=== PATIENT | male | born 1985 | race Caucasian/White ===

== ENCOUNTER 2016-08-14 23:06 | Inpatient (IN) | payer MEDICAID ==
[~2016-08-14] VITALS: Ht 170.2 cm; Wt 96.3 kg
[~2016-08-14 23:06] MED LIST: FLUO-191 PO; OLAN5TAB2 PO
[2016-08-15] MEDS ORDERED: ZOLPIDEM TARTRATE 10 MG TABLET PO PRN (03:30)
[2016-08-15 06:24] VITALS: BP 129/88
[2016-08-15 08:45] VITALS: BP 108/67
[2016-08-15] MEDS: PANTOPRAZOLE SODIUM 40 MG DR TABLET PO SCH (14:38)
[2016-08-15 17:07] VITALS: BP 102/58
[2016-08-15] MEDS: SERTRALINE HCL 50 MG TABLET PO SCH (22:15)
[2016-08-16 06:40] LABS: BASOPHILS % (AUTO) 0.6 % (0.0-2.0); EOSINOPHILS % (AUTO) 2.9 % (1.0-6.0); HEMATOCRIT 43.7 % (41-53); HEMOGLOBIN 14.1 g/dL (13.5-17.5); LYMPHOCYTES # (AUTO) 1.6 K/uL (1.0-4.8); LYMPHOCYTES % (AUTO) 36.3 % (22.0-44.0); MEAN CORPUSCULAR HEMOGLOBIN 29.9 pg (26.0-34.0); MEAN CORPUSCULAR HGB CONC 32.3 G/dL (31.0-37.0); MEAN CORPUSCULAR VOLUME 92 fL (80-100); MONOCYTES # (AUTO) 0.3 K/uL (0.1-1.0); MONOCYTES % (AUTO) 7.1 % (2.0-9.0); NEUTROPHILS # (AUTO) 2.4 K/uL (1.8-7.7); NEUTROPHILS % (AUTO) 53.1 % (40.0-70.0); PLATELET COUNT (AUTO) 159 K/uL (150-450); RED BLOOD CELL COUNT(AUTO) 4.73 MIL/uL (4.50-5.90); RED CELL DISTRIBUTION WIDTH 14.3 % (11.5-14.5); WHITE BLOOD COUNT (AUTO) 4.5 K/uL (4.5-11.0)
[2016-08-16] MEDS: ZIPRASIDONE HCL 40 MG CAPSULE PO SCH ×2 (06:41→11:18)
[2016-08-16 07:46] LABS: ALANINE AMINOTRANSFERASE 24 U/L (12-78); ALBUMIN 3.6 g/dL (3.4-5.0); ANION GAP 10 mmol/L (8-16); ASPARTATE AMINOTRANSFERASE 7 U/L (15-37); BILIRUBIN,TOTAL 0.4 mg/dL (0.1-1.0); CARBON DIOXIDE 28 mmol/L (22-29); CHLORIDE 106 mmol/L (98-107); CHOL/HDL RATIO 3.1 (4.2-7.3); GLOMERULAR FILTR. RATE CALC > 60 mL/min (>60); POTASSIUM 4.4 mmol/L (3.5-5.1); SODIUM SERUM 144 mmol/L (136-145); THYROID STIMULATING HORMONE 0.35 uIU/mL (0.36-3.74); TOTAL PROTEIN, SERUM 6.5 g/dL (6.4-8.2); UREA NITROGEN, BLOOD 14 mg/dL (7-18)
[2016-08-16 07:55] LABS: HEMOGLOBIN A1C 5.2 % (4.5-6.2)
[2016-08-16 08:47] VITALS: BP 128/60
[2016-08-16] MEDS: LORazepam 2 MG TABLET PO PRN (11:17)
[2016-08-16] MEDS: HALOPERIDOL 5 MG TABLET PO PRN (11:17)
[2016-08-16] MEDS: PANTOPRAZOLE SODIUM 40 MG DR TABLET PO SCH (11:18)
[2016-08-16 18:55] VITALS: BP 101/57
[2016-08-16] MEDS: SERTRALINE HCL 50 MG TABLET PO SCH (21:00)
[2016-08-17] MEDS: ZIPRASIDONE HCL 40 MG CAPSULE PO SCH ×2 (06:59→17:14)
[2016-08-17 08:56] VITALS: BP 141/96
[2016-08-17] MEDS: PANTOPRAZOLE SODIUM 40 MG DR TABLET PO SCH (09:44)
[2016-08-17] MEDS: HALOPERIDOL 5 MG TABLET PO PRN ×2 (10:11→15:47)
[2016-08-17] MEDS: LORazepam 2 MG TABLET PO PRN ×2 (10:11→15:47)
[2016-08-17 17:27] VITALS: BP 91/56
[2016-08-17] MEDS: SERTRALINE HCL 50 MG TABLET PO SCH (21:00)
[2016-08-18] MEDS: ZIPRASIDONE HCL 40 MG CAPSULE PO SCH (07:00)
[2016-08-18 08:38] VITALS: BP 130/83
[2016-08-18] MEDS: PANTOPRAZOLE SODIUM 40 MG DR TABLET PO SCH (08:38)
[2016-08-18] MEDS: HALOPERIDOL 5 MG TABLET PO PRN ×2 (08:38→13:40)
[2016-08-18] MEDS: LORazepam 2 MG TABLET PO PRN ×2 (08:38→13:40)
[2016-08-18] MEDS ORDERED: SERT50TA12 PO (12:58)
[2016-08-18] MEDS ORDERED: ZIPR40CA2 PO (12:58)
[2016-08-18] MEDS ORDERED: VENL25TA47 PO (17:03)
[2016-08-18] MEDS ORDERED: BUSP5TAB20 PO (17:03)
[2016-08-18] MEDS ORDERED: ARIP2 PO (17:03)
[2016-08-18] MEDS ORDERED: OMEP20 PO (17:03)
[2016-12-19] MEDS ORDERED: ARIP5TAB9 PO (20:47)
[2016-12-19] MEDS ORDERED: PARO20TA24 PO (20:47)
[2016-12-19] MEDS ORDERED: VENL-193 PO (20:47)
[2016-12-20] MEDS ORDERED: VENL-67 PO (11:24)
[2016-12-22] MEDS ORDERED: PARO20TA24 PO (16:24)
[2016-12-22] MEDS ORDERED: ARIP10TA14 PO (16:24)
[2016-12-22] MEDS ORDERED: NALT50 PO (16:24)
[2016-12-22] MEDS ORDERED: VENL37.570 PO (16:24)
== END 2016-08-18 14:56 | disposition home or self-care (01) | DRG 751 ==
LOC: 3EI 08-15 04:00
PROVIDERS: ADMIT Psychiatry & Neurology Psychiatry; ATTEND Psychiatry & Neurology Psychiatry
DX: F29 Unspecified psychosis not due to a substance or known physiological condition (principal); F33.2 Major depressive disorder, recurrent severe without psychotic features; R45.851 Suicidal ideations; F11.20 Opioid dependence, uncomplicated; Z91.14 Patient's other noncompliance with medication regimen; F41.9 Anxiety disorder, unspecified; B19.20 Unspecified viral hepatitis C without hepatic coma; F17.200 Nicotine dependence, unspecified, uncomplicated; K21.9 Gastro-esophageal reflux disease without esophagitis; F15.90 Other stimulant use, unspecified, uncomplicated; F12.90 Cannabis use, unspecified, uncomplicated; Z91.5 Personal history of self-harm; Z62.819 Personal history of unspecified abuse in childhood
CPT/HCPCS: 83036; 84439; 84443

== ENCOUNTER 2016-08-18 16:45 | Inpatient (IN) | payer MEDICAID, OTHER ==
[~2016-08-18] VITALS: Ht 170.2 cm; Wt 95.8 kg
[~2016-08-18 16:45] MED LIST changes: +SERT50TA12 PO; +ZIPR40CA2 PO
[2016-08-18] MEDS ORDERED: OMEP20 PO (17:03)
[2016-08-18] MEDS ORDERED: VENL25TA47 PO (17:03)
[2016-08-18] MEDS ORDERED: ARIP2 PO (17:03)
[2016-08-18] MEDS ORDERED: BUSP5TAB20 PO (17:03)
[2016-08-18 17:52] LABS: BASOPHILS # (AUTO) 0.03 K/uL (0.00-0.20); BASOPHILS % (AUTO) 0.5 % (0.0-2.0); EOSINOPHILS % (AUTO) 1.59 % (1.0-6.0); HEMATOCRIT 39.2 % (41-53); HEMOGLOBIN 12.9 g/dL (13.5-17.5); LYMPHOCYTES # (AUTO) 1.8 K/uL (1.0-4.8); LYMPHOCYTES % (AUTO) 27.8 % (22.0-44.0); MEAN CORPUSCULAR HEMOGLOBIN 30.1 pg (26.0-34.0); MEAN CORPUSCULAR HGB CONC 32.9 G/dL (31.0-37.0); MEAN CORPUSCULAR VOLUME 92 fL (80-100); MONOCYTES # (AUTO) 0.4 K/uL (0.1-1.0); MONOCYTES % (AUTO) 6.8 % (2.0-9.0); NEUTROPHILS # (AUTO) 4.1 K/uL (1.8-7.7); NEUTROPHILS % (AUTO) 63.3 % (40.0-70.0); PLATELET COUNT (AUTO) 156 K/uL (150-450); RED BLOOD CELL COUNT(AUTO) 4.27 MIL/uL (4.50-5.90); RED CELL DISTRIBUTION WIDTH 14.1 % (11.5-14.5); WHITE BLOOD COUNT (AUTO) 6.4 K/uL (4.5-11.0)
[2016-08-18 17:59] LABS: ANION GAP 9 mmol/L (8-16); CALCIUM, TOTAL 8.8 mg/dL (8.8-10.5); CARBON DIOXIDE 28 mmol/L (22-29); CHLORIDE 106 mmol/L (98-107); CREATININE 1.19 mg/dL (0.60-1.30); GLOMERULAR FILTR. RATE CALC > 60 mL/min (>60); POTASSIUM 4.2 mmol/L (3.5-5.1); SODIUM SERUM 143 mmol/L (136-145); UREA NITROGEN, BLOOD 15 mg/dL (7-18)
[2016-08-18 18:08] LABS: ALANINE AMINOTRANSFERASE 21 U/L (12-78); ALBUMIN 3.8 g/dL (3.4-5.0); ASPARTATE AMINOTRANSFERASE 13 U/L (15-37); BILIRUBIN,TOTAL 0.2 mg/dL (0.1-1.0); TOTAL PROTEIN, SERUM 6.5 g/dL (6.4-8.2)
[2016-08-18 18:09] LABS: ACETAMINOPHEN < 2 mcg/mL (10-30)
[2016-08-18] MEDS ORDERED: ZOLPIDEM TARTRATE 10 MG TABLET PO PRN (20:00)
[2016-08-18 21:29] LABS: APPEARANCE,URINE TURBID (CLEAR); GLUCOSE, URINE (UA) NEGATIVE (NEGATIVE); KETONES,URINE TRACE mg/dL (NEGATIVE); LEUKOCYTE ESTERASE ,URINE NEGATIVE (NEGATIVE); OCCULT BLOOD,URINE NEGATIVE (NEGATIVE); PROTEIN,URINE NEGATIVE (NEGATIVE)
[2016-08-18 21:33] VITALS: BP 111/69
[2016-08-18 21:37] LABS: ADD UA MICROSCOPIC YES
[2016-08-18 21:38] LABS: AMORPHOUS SEDIMENT,UR Many /LPF (None Seen); CALCIUM OXALATE CRYSTALS,UR Few /LPF (None Seen); RBC,URINE None Seen /HPF (0-2); SQUAMOUS EPITHELIAL CELL,UR Rare /LPF (None Seen); WBC,URINE 0-2 /HPF (0-5)
[2016-08-19] MEDS: ZIPRASIDONE HCL 40 MG CAPSULE PO SCH ×2 (06:59→17:18)
[2016-08-19 08:36] VITALS: BP 108/59
[2016-08-19] MEDS: NICOTINE 21 MG/24 HOUR PATCH TD SCH ×2 (09:00→10:36)
[2016-08-19] MEDS: PANTOPRAZOLE SODIUM 40 MG DR TABLET PO SCH ×2 (09:00→10:35)
[2016-08-19] MEDS: LEVOFLOXACIN 250 MG TABLET PO SCH ×2 (09:00→10:35)
[2016-08-19] MEDS: LORazepam 2 MG TABLET PO PRN (13:55)
[2016-08-19] MEDS: HALOPERIDOL 5 MG TABLET PO PRN (13:55)
[2016-08-19 17:10] VITALS: BP 112/58
[2016-08-19] MEDS: SERTRALINE HCL 50 MG TABLET PO SCH (20:20)
[2016-08-20] MEDS: ZIPRASIDONE HCL 40 MG CAPSULE PO SCH ×2 (06:32→16:56)
[2016-08-20] MEDS: LORazepam 2 MG TABLET PO PRN ×2 (08:56→12:59)
[2016-08-20] MEDS: PANTOPRAZOLE SODIUM 40 MG DR TABLET PO SCH (08:56)
[2016-08-20] MEDS: NICOTINE 21 MG/24 HOUR PATCH TD SCH (08:56)
[2016-08-20] MEDS: HALOPERIDOL 5 MG TABLET PO PRN ×2 (08:56→12:59)
[2016-08-20] MEDS: LEVOFLOXACIN 250 MG TABLET PO SCH (08:56)
[2016-08-20 09:19] VITALS: BP 128/77
[2016-08-20 17:50] VITALS: BP 115/72
[2016-08-20] MEDS: SERTRALINE HCL 50 MG TABLET PO SCH (20:39)
[2016-08-21] MEDS: ZIPRASIDONE HCL 40 MG CAPSULE PO SCH ×2 (06:34→17:40)
[2016-08-21] MEDS: NICOTINE 21 MG/24 HOUR PATCH TD SCH (09:00)
[2016-08-21 09:25] VITALS: BP 110/55
[2016-08-21] MEDS: LEVOFLOXACIN 250 MG TABLET PO SCH (11:10)
[2016-08-21] MEDS: LORazepam 2 MG TABLET PO PRN ×2 (11:10→15:48)
[2016-08-21] MEDS: PANTOPRAZOLE SODIUM 40 MG DR TABLET PO SCH (11:10)
[2016-08-21] MEDS: HALOPERIDOL 5 MG TABLET PO PRN ×2 (11:11→15:48)
[2016-08-21] MEDS: IBUPROFEN 200 MG TABLET PO PRN (14:28)
[2016-08-21 17:05] VITALS: BP 123/75
[2016-08-21] MEDS: SERTRALINE HCL 50 MG TABLET PO SCH (20:23)
[2016-08-22] MEDS: ZIPRASIDONE HCL 40 MG CAPSULE PO SCH ×2 (06:34→17:07)
[2016-08-22] MEDS: PANTOPRAZOLE SODIUM 40 MG DR TABLET PO SCH (08:58)
[2016-08-22] MEDS: NICOTINE 21 MG/24 HOUR PATCH TD SCH (09:00)
[2016-08-22] MEDS: LORazepam 2 MG TABLET PO PRN ×2 (09:00→17:07)
[2016-08-22] MEDS: IBUPROFEN 200 MG TABLET PO PRN (10:27)
[2016-08-22 10:29] VITALS: BP 124/60
[2016-08-22 11:31] VITALS: BP 108/60
[2016-08-22 16:01] VITALS: BP 108/73
[2016-08-22] MEDS: HALOPERIDOL 5 MG TABLET PO PRN (18:45)
[2016-08-22] MEDS: SERTRALINE HCL 100 MG TABLET PO SCH (21:09)
[2016-08-23] MEDS: ZIPRASIDONE HCL 40 MG CAPSULE PO SCH ×2 (07:04→18:38)
[2016-08-23 08:10] VITALS: BP 118/80
[2016-08-23] MEDS: PANTOPRAZOLE SODIUM 40 MG DR TABLET PO SCH (08:14)
[2016-08-23] MEDS: IBUPROFEN 200 MG TABLET PO PRN (08:15)
[2016-08-23] MEDS: LORazepam 2 MG TABLET PO PRN ×2 (08:15→12:59)
[2016-08-23] MEDS: NICOTINE 21 MG/24 HOUR PATCH TD SCH (09:00)
[2016-08-23 15:40] VITALS: BP 117/70
[2016-08-23] MEDS: HALOPERIDOL 5 MG TABLET PO PRN (15:59)
[2016-08-23 16:00] VITALS: BP 119/81
[2016-08-23] MEDS: SERTRALINE HCL 100 MG TABLET PO SCH (20:17)
[2016-08-24] MEDS: ZIPRASIDONE HCL 40 MG CAPSULE PO SCH (06:50)
[2016-08-24 08:00] VITALS: BP 137/75
[2016-08-24] MEDS: PANTOPRAZOLE SODIUM 40 MG DR TABLET PO SCH (08:28)
[2016-08-24] MEDS: IBUPROFEN 200 MG TABLET PO PRN (08:29)
[2016-08-24] MEDS: LORazepam 2 MG TABLET PO PRN (08:30)
[2016-08-24] MEDS: NICOTINE 21 MG/24 HOUR PATCH TD SCH (09:00)
[2016-08-24 09:35] VITALS: BP 141/78
[2016-08-24] MEDS ORDERED: ZIPR40CA2 PO (09:37)
[2016-08-24] MEDS ORDERED: PANT40TA25 PO (09:37)
[2016-08-24] MEDS ORDERED: SERT100T12 PO (09:37)
[2016-12-19] MEDS ORDERED: VENL-193 PO (20:47)
[2016-12-19] MEDS ORDERED: ARIP5TAB9 PO (20:47)
[2016-12-19] MEDS ORDERED: PARO20TA24 PO (20:47)
[2016-12-20] MEDS ORDERED: VENL-67 PO (11:24)
[2016-12-22] MEDS ORDERED: ARIP10TA14 PO (16:24)
[2016-12-22] MEDS ORDERED: VENL37.570 PO (16:24)
[2016-12-22] MEDS ORDERED: PARO20TA24 PO (16:24)
[2016-12-22] MEDS ORDERED: NALT50 PO (16:24)
== END 2016-08-24 10:45 | disposition home or self-care (01) | DRG 751 ==
LOC: EEVIPCON 16:47 → EMS 16:47 → 3EI 20:07
PROVIDERS: ADMIT Psychiatry & Neurology Psychiatry; ATTEND Psychiatry & Neurology Psychiatry
DX: F33.2 Major depressive disorder, recurrent severe without psychotic features (principal); D69.6 Thrombocytopenia, unspecified; R45.851 Suicidal ideations; F15.20 Other stimulant dependence, uncomplicated; N39.0 Urinary tract infection, site not specified; F20.9 Schizophrenia, unspecified; B19.20 Unspecified viral hepatitis C without hepatic coma; F17.210 Nicotine dependence, cigarettes, uncomplicated; D64.9 Anemia, unspecified; K21.9 Gastro-esophageal reflux disease without esophagitis; Z59.0 Homelessness; Z79.899 Other long term (current) drug therapy
CPT/HCPCS: 87081; 87086; 99285; G0480; G0481

== ENCOUNTER 2017-06-10 18:33 | Inpatient (IN) | payer MEDICAID, OTHER ==
[~2017-06-10] VITALS: Ht 170.2 cm; Wt 81.8 kg
[~2017-06-10 18:33] MED LIST changes: +ARIP10TA8 PO; -FLUO-191 PO; -OLAN5TAB2 PO; +PARO20TA24 PO; -SERT50TA12 PO; -ZIPR40CA2 PO
[2017-06-10 18:55] LABS: BASOPHILS % (AUTO) 0.5 % (0.0-2.0); HEMATOCRIT 41.1 % (41-53); HEMOGLOBIN 13.9 g/dL (13.5-17.5); LYMPHOCYTES # (AUTO) 1.4 K/uL (1.0-4.8); LYMPHOCYTES % (AUTO) 28.6 % (22.0-44.0); MEAN CORPUSCULAR HEMOGLOBIN 31.4 pg (26.0-34.0); MEAN CORPUSCULAR HGB CONC 33.8 G/dL (31.0-37.0); MEAN CORPUSCULAR VOLUME 93 fL (80-100); MONOCYTES # (AUTO) 0.4 K/uL (0.1-1.0); MONOCYTES % (AUTO) 8.9 % (2.0-9.0); PLATELET COUNT (AUTO) 159 K/uL (150-450); RED BLOOD CELL COUNT(AUTO) 4.44 MIL/uL (4.50-5.90); RED CELL DISTRIBUTION WIDTH 13.3 % (11.5-14.5)
[2017-06-10 19:06] LABS: ANION GAP 8 mmol/L (8-16); CARBON DIOXIDE 28 mmol/L (22-29); CHLORIDE 103 mmol/L (98-107); GLOMERULAR FILTR. RATE CALC > 60 mL/min (>60); POTASSIUM 4.1 mmol/L (3.5-5.1); SODIUM SERUM 139 mmol/L (136-145); UREA NITROGEN, BLOOD 16 mg/dL (7-18)
[2017-06-10 19:12] LABS: ALANINE AMINOTRANSFERASE 33 U/L (12-78); ALBUMIN 4.1 g/dL (3.4-5.0); ASPARTATE AMINOTRANSFERASE 23 U/L (15-37); BILIRUBIN,TOTAL 0.5 mg/dL (0.1-1.0)
[2017-06-10] MEDS ORDERED: LORazepam 2 MG TABLET PO PRN (20:30)
[2017-06-10] MEDS ORDERED: HALOPERIDOL LACTATE 5 MG/ML VIAL IM ONE (20:30)
[2017-06-10] MEDS ORDERED: ZOLPIDEM TARTRATE 10 MG TABLET PO PRN (20:30)
[2017-06-10] MEDS ORDERED: LORazepam 2 MG/ML VIAL IM ONE (20:30)
[2017-06-10] MEDS ORDERED: DiphenhydrAMINE HCL 50 MG/ML VIAL IM ONE (20:30)
[2017-06-10] MEDS ORDERED: HALOPERIDOL 5 MG TABLET PO PRN (20:30)
[2017-06-10 21:01] LABS: GLUCOSE, URINE (UA) NEGATIVE (NEGATIVE); KETONES,URINE TRACE mg/dL (NEGATIVE); LEUKOCYTE ESTERASE ,URINE NEGATIVE (NEGATIVE); OCCULT BLOOD,URINE NEGATIVE (NEGATIVE); PROTEIN,URINE NEGATIVE (NEGATIVE)
[2017-06-10 21:05] LABS: ADD UA MICROSCOPIC NO; APPEARANCE,URINE HAZY (CLEAR)
[2017-06-10 21:31] LABS: CHOL/HDL RATIO 2.1 (4.2-7.3); THYROID STIMULATING HORMONE 1.49 uIU/mL (0.36-3.74)
[2017-06-11 00:55] VITALS: BP 102/61
[2017-06-11 01:33] VITALS: BP 102/60
[2017-06-11] MEDS ORDERED: PNEUMOCOCCAL VACCINE POLYVALENT 0.5 ML VIAL [PPSV23] IM ONE (03:15)
[2017-06-11] MEDS ORDERED: INFLUENZA VIRUS VACCINE QVS 2017-18 (3YR+)/PF 60 MCG/0.5 ML SYRINGE IM ONE (03:15)
[2017-06-11 08:00] VITALS: BP 110/66
[2017-06-11] MEDS: PARoxetine HCL 20 MG TABLET PO SCH (08:33)
[2017-06-11] MEDS: ARIPiprazole 10 MG TABLET PO SCH (08:33)
[2017-06-11 16:00] VITALS: BP 114/65
[2017-06-12 06:19] VITALS: BP 124/60
[2017-06-12 08:03] VITALS: BP 113/65
[2017-06-12] MEDS: PARoxetine HCL 20 MG TABLET PO SCH (09:36)
[2017-06-12] MEDS: ARIPiprazole 10 MG TABLET PO SCH (09:36)
[2017-06-12 16:00] VITALS: BP 116/66
[2017-06-13 06:23] VITALS: BP 109/65
[2017-06-13 08:09] VITALS: BP 108/60
[2017-06-13] MEDS: PARoxetine HCL 20 MG TABLET PO SCH (09:08)
[2017-06-13] MEDS: ARIPiprazole 10 MG TABLET PO SCH (09:08)
[2017-06-13 16:11] VITALS: BP 115/65
[2017-06-14 06:26] VITALS: BP 112/60
[2017-06-14 08:37] VITALS: BP 90/53
[2017-06-14] MEDS: ARIPiprazole 10 MG TABLET PO SCH (08:46)
[2017-06-14] MEDS: PARoxetine HCL 20 MG TABLET PO SCH (08:46)
[2017-06-14 16:00] VITALS: BP 114/68
[2017-06-15 06:34] VITALS: BP 102/64
[2017-06-15 08:13] VITALS: BP 118/68
[2017-06-15] MEDS: ARIPiprazole 10 MG TABLET PO SCH (09:30)
[2017-06-15] MEDS: PARoxetine HCL 20 MG TABLET PO SCH (09:30)
[2017-06-15] MEDS ORDERED: PARO20TA24 PO (11:03)
[2017-06-15] MEDS ORDERED: ARIP10TA8 PO (11:03)
== END 2017-06-15 13:15 | disposition home or self-care (01) | DRG 750 ==
LOC: EMS 18:34 → B3A 20:58
DX: F25.1 Schizoaffective disorder, depressive type (principal); R45.851 Suicidal ideations; Z78.1 Physical restraint status; I10 Essential (primary) hypertension; F15.10 Other stimulant abuse, uncomplicated; B19.20 Unspecified viral hepatitis C without hepatic coma; F12.90 Cannabis use, unspecified, uncomplicated; F41.9 Anxiety disorder, unspecified; Z59.0 Homelessness; Z79.899 Other long term (current) drug therapy; Z71.51 Drug abuse counseling and surveillance of drug abuser
CPT/HCPCS: 84443; 90471; 96372; 99285; G0480; J1200; J1630; J2060

== ENCOUNTER 2017-07-03 14:16 | Inpatient (IN) | payer MEDICAID ==
[~2017-07-03] VITALS: Ht 170.2 cm; Wt 88.2 kg
[2017-07-03 15:27] VITALS: BP 128/68
[2017-07-03 16:27] VITALS: BP 125/75
[2017-07-04 06:27] VITALS: BP 125/80
[2017-07-04 08:35] LABS: BASOPHILS % (AUTO) 0.4 % (0.0-2.0); EOSINOPHILS % (AUTO) 2.1 % (1.0-6.0); HEMATOCRIT 41.7 % (41-53); HEMOGLOBIN 13.9 g/dL (13.5-17.5); MEAN CORPUSCULAR HEMOGLOBIN 31.7 pg (26.0-34.0); MEAN CORPUSCULAR HGB CONC 33.4 G/dL (31.0-37.0); MEAN CORPUSCULAR VOLUME 95 fL (80-100); MONOCYTES # (AUTO) 0.3 K/uL (0.1-1.0); MONOCYTES % (AUTO) 6.5 % (2.0-9.0); NEUTROPHILS # (AUTO) 3.2 K/uL (1.8-7.7); PLATELET COUNT (AUTO) 161 K/uL (150-450); RED BLOOD CELL COUNT(AUTO) 4.39 MIL/uL (4.50-5.90); RED CELL DISTRIBUTION WIDTH 13.6 % (11.5-14.5)
[2017-07-04 09:00] LABS: HEMOGLOBIN A1C 5.1 % (4.5-6.2)
[2017-07-04 09:03] VITALS: BP 102/60
[2017-07-04 09:05] LABS: ALANINE AMINOTRANSFERASE 38 U/L (12-78); ALBUMIN 3.3 g/dL (3.4-5.0); ALKALINE PHOSPHATASE 85 U/L (46-116); ANION GAP 7 mmol/L (8-16); ASPARTATE AMINOTRANSFERASE 16 U/L (15-37); BILIRUBIN,TOTAL 0.4 mg/dL (0.1-1.0); CALCIUM, TOTAL 8.4 mg/dL (8.8-10.5); CARBON DIOXIDE 30 mmol/L (22-29); CHLORIDE 104 mmol/L (98-107); CHOL/HDL RATIO 2.7 (4.2-7.3); CHOLESTEROL 157 mg/dL (131-200); CREATININE 1.11 mg/dL (0.60-1.30); FREE T4 (FREE THYROXINE) 0.86 ng/dL (0.76-1.46); GLOMERULAR FILTR. RATE CALC > 60 mL/min (>60); GLUCOSE,RANDOM 162 mg/dL (70-110); HDL CHOLESTEROL 59 mg/dL (40-60); LDL CHOL (CALC.) 75 mg/dL (0-130); POTASSIUM 4.2 mmol/L (3.5-5.1); SODIUM SERUM 141 mmol/L (136-145); THYROID STIMULATING HORMONE 0.16 uIU/mL (0.36-3.74); TOTAL PROTEIN, SERUM 6.6 g/dL (6.4-8.2); TRIGLYCERIDES 114 mg/dL (15-150); UREA NITROGEN, BLOOD 16 mg/dL (7-18)
[2017-07-04] MEDS: ARIPiprazole 10 MG TABLET PO SCH (12:04)
[2017-07-04] MEDS: PARoxetine HCL 20 MG TABLET PO SCH (12:04)
[2017-07-04] MEDS: HALOPERIDOL 5 MG TABLET PO PRN (16:34)
[2017-07-04] MEDS: LORazepam 2 MG TABLET PO PRN (16:34)
[2017-07-04 17:14] VITALS: BP 120/72
[2017-07-05 06:34] VITALS: BP 112/74
[2017-07-05 08:07] VITALS: BP 108/64
[2017-07-05] MEDS: PARoxetine HCL 20 MG TABLET PO SCH (08:49)
[2017-07-05] MEDS: HALOPERIDOL 5 MG TABLET PO PRN (08:49)
[2017-07-05] MEDS: ARIPiprazole 10 MG TABLET PO SCH (08:49)
[2017-07-05] MEDS: LORazepam 2 MG TABLET PO PRN (08:49)
[2017-07-05 16:07] VITALS: BP 111/67
[2017-07-06 06:13] VITALS: BP 105/62
[2017-07-06] MEDS: PARoxetine HCL 20 MG TABLET PO SCH (09:08)
[2017-07-06] MEDS: ARIPiprazole 10 MG TABLET PO SCH (09:08)
[2017-07-06] MEDS: HALOPERIDOL 5 MG TABLET PO PRN (09:09)
[2017-07-06] MEDS: LORazepam 2 MG TABLET PO PRN (09:09)
[2017-07-06 09:11] VITALS: BP 116/75
[2017-07-06 16:33] VITALS: BP 120/60
[2017-07-07] MEDS: HALOPERIDOL 5 MG TABLET PO PRN ×2 (00:10→09:24)
[2017-07-07] MEDS: LORazepam 2 MG TABLET PO PRN ×2 (00:10→09:24)
[2017-07-07 00:16] VITALS: BP 128/70
[2017-07-07] MEDS: ZOLPIDEM TARTRATE 10 MG TABLET PO PRN (01:32)
[2017-07-07] MEDS ORDERED: AZITHROMYCIN 250 MG TABLET PO ONE (06:30)
[2017-07-07 08:29] VITALS: BP 127/74
[2017-07-07] MEDS: NEOMYCIN/POLYMYXIN B/HYDROCORT 10 ML OTIC SOLUTION AD SCH ×3 (09:00→17:14)
[2017-07-07] MEDS: PARoxetine HCL 20 MG TABLET PO SCH (09:24)
[2017-07-07] MEDS: ARIPiprazole 10 MG TABLET PO SCH (09:24)
[2017-07-07] MEDS ORDERED: IBUPROFEN 600 MG TABLET PO PRN (10:00)
[2017-07-07] MEDS ORDERED: ARIPiprazole 10 MG TABLET PO ONE (10:00)
[2017-07-07] MEDS ORDERED: ACETAMINOPHEN 325 MG TABLET PO PRN (10:00)
[2017-07-07 10:08] VITALS: BP 121/76
[2017-07-07] MEDS ORDERED: LORA2TAB2 PO (12:03)
[2017-07-07] MEDS ORDERED: CORTSOL AD (12:03)
[2017-07-07] MEDS ORDERED: ARIP15TA2 PO (12:03)
[2017-07-07] MEDS ORDERED: IBUP-2070 PO (12:03)
[2017-07-07] MEDS ORDERED: AZIT250T9 PO (12:03)
[2017-07-07] MEDS ORDERED: HALO5 PO (12:03)
[2017-07-07] MEDS ORDERED: ZOLP10TA7 PO (12:03)
[2017-07-07] MEDS ORDERED: ACET-784 PO (12:03)
[2017-07-07 16:02] VITALS: BP 137/82
[2017-07-08 06:43] VITALS: BP 113/66
[2017-07-08 08:09] VITALS: BP 121/73
[2017-07-08] MEDS: PARoxetine HCL 20 MG TABLET PO SCH (09:25)
[2017-07-08] MEDS: ARIPiprazole 15 MG TABLET PO SCH (09:25)
[2017-07-08] MEDS: HALOPERIDOL 5 MG TABLET PO PRN ×2 (09:25→17:13)
[2017-07-08] MEDS: AZITHROMYCIN 250 MG TABLET PO SCH (09:25)
[2017-07-08] MEDS: LORazepam 2 MG TABLET PO PRN ×2 (09:25→17:13)
[2017-07-08] MEDS: NEOMYCIN/POLYMYXIN B/HYDROCORT 10 ML OTIC SOLUTION AD SCH ×3 (09:26→17:13)
[2017-07-08 16:04] VITALS: BP 109/65
[2017-07-08] MEDS: ZOLPIDEM TARTRATE 10 MG TABLET PO PRN (20:41)
[2017-07-09 06:57] VITALS: BP 115/70
[2017-07-09 08:55] VITALS: BP 117/71
[2017-07-09] MEDS: ARIPiprazole 15 MG TABLET PO SCH (09:05)
[2017-07-09] MEDS: PARoxetine HCL 20 MG TABLET PO SCH (09:05)
[2017-07-09] MEDS: AZITHROMYCIN 250 MG TABLET PO SCH (09:05)
[2017-07-09] MEDS: NEOMYCIN/POLYMYXIN B/HYDROCORT 10 ML OTIC SOLUTION AD SCH ×3 (09:06→17:03)
[2017-07-09 16:11] VITALS: BP 110/61
[2017-07-10 06:50] VITALS: BP 118/71
[2017-07-10 08:15] VITALS: BP 121/63
[2017-07-10] MEDS: AZITHROMYCIN 250 MG TABLET PO SCH (08:32)
[2017-07-10] MEDS: NEOMYCIN/POLYMYXIN B/HYDROCORT 10 ML OTIC SOLUTION AD SCH ×3 (08:32→16:46)
[2017-07-10] MEDS: PARoxetine HCL 20 MG TABLET PO SCH (08:33)
[2017-07-10] MEDS: ARIPiprazole 15 MG TABLET PO SCH (08:33)
[2017-07-10 16:07] VITALS: BP 123/71
[2017-07-11 06:34] VITALS: BP 126/75
[2017-07-11 08:00] VITALS: BP 116/66
[2017-07-11] MEDS: AZITHROMYCIN 250 MG TABLET PO SCH (08:42)
[2017-07-11] MEDS: ARIPiprazole 15 MG TABLET PO SCH (08:42)
[2017-07-11] MEDS: PARoxetine HCL 20 MG TABLET PO SCH (08:42)
[2017-07-11] MEDS: NEOMYCIN/POLYMYXIN B/HYDROCORT 10 ML OTIC SOLUTION AD SCH ×3 (08:43→16:10)
[2017-07-11] MEDS: LORazepam 2 MG TABLET PO PRN ×2 (08:48→16:10)
[2017-07-11 16:27] VITALS: BP 115/67
[2017-07-12 00:05] VITALS: BP 117/80
[2017-07-12] MEDS: ZOLPIDEM TARTRATE 10 MG TABLET PO PRN (00:07)
[2017-07-12 08:05] VITALS: BP 125/70
[2017-07-12] MEDS: ARIPiprazole 15 MG TABLET PO SCH (09:08)
[2017-07-12] MEDS: NEOMYCIN/POLYMYXIN B/HYDROCORT 10 ML OTIC SOLUTION AD SCH ×3 (09:08→16:23)
[2017-07-12] MEDS: PARoxetine HCL 20 MG TABLET PO SCH (09:08)
[2017-07-12] MEDS: LORazepam 2 MG TABLET PO PRN ×2 (11:10→16:24)
[2017-07-12] MEDS: HALOPERIDOL 5 MG TABLET PO PRN ×2 (11:11→16:24)
[2017-07-12 16:00] VITALS: BP 120/72
[2017-07-13 06:34] VITALS: BP 109/69
[2017-07-13 08:12] VITALS: BP 111/60
[2017-07-13] MEDS: ARIPiprazole 15 MG TABLET PO SCH (08:43)
[2017-07-13] MEDS: LORazepam 2 MG TABLET PO PRN ×2 (08:43→14:33)
[2017-07-13] MEDS: PARoxetine HCL 20 MG TABLET PO SCH (08:43)
[2017-07-13] MEDS: NEOMYCIN/POLYMYXIN B/HYDROCORT 10 ML OTIC SOLUTION AD SCH ×3 (08:45→17:06)
[2017-07-13] MEDS: HALOPERIDOL 5 MG TABLET PO PRN (14:34)
[2017-07-13 16:11] VITALS: BP 105/61
[2017-07-14] VITALS: BP 131/75
== END 2017-07-14 07:15 | disposition home or self-care (01) | DRG 750 ==
LOC: B3A 15:44 → B2S 07-13 20:38
PROVIDERS: ADMIT Psychiatry & Neurology Psychiatry
DX: F25.1 Schizoaffective disorder, depressive type (principal); F11.20 Opioid dependence, uncomplicated; R45.851 Suicidal ideations; F41.9 Anxiety disorder, unspecified; F12.90 Cannabis use, unspecified, uncomplicated; F15.10 Other stimulant abuse, uncomplicated; B19.20 Unspecified viral hepatitis C without hepatic coma; Z79.899 Other long term (current) drug therapy
CPT/HCPCS: 83036; 84439; 84443; 87081

== ENCOUNTER 2017-07-07 11:38 | Emergency (ER) | payer MEDICAID, OTHER ==
[~2017-07-07] VITALS: Ht 170.2 cm; Wt 90.9 kg
[2017-07-07] MEDS ORDERED: ARIP15TA2 PO (12:03)
[2017-07-07] MEDS ORDERED: LORA2TAB2 PO (12:03)
[2017-07-07] MEDS ORDERED: ZOLP10TA7 PO (12:03)
[2017-07-07] MEDS ORDERED: AZIT250T9 PO (12:03)
[2017-07-07] MEDS ORDERED: CORTSOL AD (12:03)
[2017-07-07] MEDS ORDERED: IBUP-2070 PO (12:03)
[2017-07-07] MEDS ORDERED: HALO5 PO (12:03)
[2017-07-07] MEDS ORDERED: ACET-784 PO (12:03)
[2017-07-07] MEDS ORDERED: IBUPROFEN 600 MG TABLET PO ONE (12:15)
[2017-07-07 12:32] VITALS: BP 126/72
== END 2017-07-07 13:18 | disposition other institution (70) ==
LOC: EMS 11:40
DX: H66.91 Otitis media, unspecified, right ear (principal); F17.210 Nicotine dependence, cigarettes, uncomplicated
CPT/HCPCS: 99283; 99285

== ENCOUNTER 2018-02-10 17:07 | Emergency (ER) | payer OTHER ==
[~2018-02-10] VITALS: Ht 170.2 cm; Wt 90.9 kg
[~2018-02-10 17:07] MED LIST changes: -ARIP10TA8 PO; +ARIP15TA2 PO
[2018-02-10] MEDS ORDERED: KETOROLAC TROMETHAMINE 10 MG TABLET PO ONE (19:30)
[2018-02-10] MEDS ORDERED: POVIDONE-IODINE 10% 15 ML SOLUTION UD TP ONE (19:30)
[2018-02-10] MEDS ORDERED: LIDOCAINE HCL 1% 20 ML VIAL INJ ONE (19:30)
[2018-02-10 20:55] VITALS: BP 128/74
== END 2018-02-10 21:02 | disposition home or self-care (01) ==
LOC: EMS 17:08
DX: D17.24 Benign lipomatous neoplasm of skin and subcutaneous tissue of left leg (principal); M79.89 Other specified soft tissue disorders; L02.416 Cutaneous abscess of left lower limb; F32.9 Major depressive disorder, single episode, unspecified; F20.9 Schizophrenia, unspecified; F17.210 Nicotine dependence, cigarettes, uncomplicated
CPT/HCPCS: 10160; 73562; 99284; J3490

== ENCOUNTER 2018-06-04 08:05 | Emergency (ER) | payer MEDICAID, OTHER ==
[~2018-06-04] VITALS: Ht 170.2 cm; Wt 81.8 kg
[~2018-06-04 08:05] MED LIST changes: -PARO20TA24 PO
[2018-06-04] MEDS ORDERED: ARIP300S3 IM (08:09)
[2018-06-04] MEDS ORDERED: KETOROLAC TROMETHAMINE 30 MG/ML VIAL IM ONE (09:15)
[2018-06-04 10:11] VITALS: BP 104/59
== END 2018-06-04 10:35 | disposition home or self-care (01) ==
LOC: EMS 08:06
DX: M79.89 Other specified soft tissue disorders (principal); M25.532 Pain in left wrist; M79.642 Pain in left hand; F32.9 Major depressive disorder, single episode, unspecified; F20.9 Schizophrenia, unspecified; F17.210 Nicotine dependence, cigarettes, uncomplicated
CPT/HCPCS: 29125; 73110; 96372; 99283; 99406; J1885

== ENCOUNTER 2018-07-15 08:11 | Emergency (ER) | payer OTHER ==
[~2018-07-15] VITALS: Ht 170.2 cm; Wt 81.8 kg
[~2018-07-15 08:11] MED LIST changes: -ARIP15TA2 PO; +ARIP300S3 IM
[2018-07-15] MEDS ORDERED: ACETAMINOPHEN 325 MG TABLET PO ONE (09:00)
[2018-07-15] MEDS ORDERED: BENZONATATE 100 MG CAPSULE PO ONE (09:00)
[2018-07-15 09:16] VITALS: BP 120/88
[2018-07-15 10:48] LABS: RAPID GROUP A STREP NEGATIVE (NEGATIVE)
[2018-07-15 10:49] LABS: INFLUENZA TYPE A NEGATIVE FOR TYPE A (NEGATIVE); INFLUENZA TYPE B NEGATIVE FOR TYPE B (NEGATIVE)
== END 2018-07-15 12:17 | disposition home or self-care (01) ==
LOC: EMS 08:12
DX: J40 Bronchitis, not specified as acute or chronic (principal); J02.9 Acute pharyngitis, unspecified; F17.210 Nicotine dependence, cigarettes, uncomplicated; Z79.899 Other long term (current) drug therapy
CPT/HCPCS: 87430; 87804

== ENCOUNTER 2018-10-08 21:46 | Emergency (ER) | payer OTHER ==
[~2018-10-08] VITALS: Ht 177.8 cm; Wt 81.8 kg
[2018-10-08 21:51] VITALS: BP 136/86
== END 2018-10-08 22:38 | disposition left against medical advice (07) ==
LOC: EMS 21:46
DX: R45.851 Suicidal ideations (principal); Z53.21 Procedure and treatment not carried out due to patient leaving prior to being seen by health care provider

== ENCOUNTER 2018-10-10 12:48 | Inpatient (IN) | payer MEDICAID, OTHER ==
[~2018-10-10] VITALS: Ht 170.2 cm; Wt 85.3 kg
[2018-10-10] MEDS ORDERED: HALOPERIDOL 5 MG TABLET PO ONE (15:15)
[2018-10-10 15:40] LABS: BASOPHILS % (AUTO) 1.3 % (0.0-2.0); EOSINOPHILS % (AUTO) 1.6 % (1.0-6.0); HEMATOCRIT 42.9 % (41-53); LYMPHOCYTES # (AUTO) 0.9 K/uL (1.0-4.8); LYMPHOCYTES % (AUTO) 19.7 % (22.0-44.0); MEAN CORPUSCULAR HEMOGLOBIN 30.9 pg (26.0-34.0); MEAN CORPUSCULAR HGB CONC 32.7 G/dL (31.0-37.0); MEAN CORPUSCULAR VOLUME 95 fL (80-100); MONOCYTES # (AUTO) 0.2 K/uL (0.1-1.0); MONOCYTES % (AUTO) 4.3 % (2.0-9.0); NEUTROPHILS # (AUTO) 3.5 K/uL (1.8-7.7); NEUTROPHILS % (AUTO) 73.1 % (40.0-70.0); PLATELET COUNT (AUTO) 170 K/uL (150-450); RED BLOOD CELL COUNT(AUTO) 4.53 MIL/uL (4.50-5.90); RED CELL DISTRIBUTION WIDTH 13.2 % (11.5-14.5)
[2018-10-10 15:49] LABS: ANION GAP 11 mmol/L (8-16); CALCIUM, TOTAL 9.5 mg/dL (8.8-10.5); CARBON DIOXIDE 26 mmol/L (22-29); CHLORIDE 103 mmol/L (98-107); GLOMERULAR FILTR. RATE CALC > 60 mL/min (>60); GLUCOSE,RANDOM 102 mg/dL (70-110); POTASSIUM 3.4 mmol/L (3.5-5.1); SODIUM SERUM 140 mmol/L (136-145); UREA NITROGEN, BLOOD 14 mg/dL (7-18)
[2018-10-10 15:55] LABS: ALANINE AMINOTRANSFERASE 31 U/L (12-78); ALBUMIN 3.5 g/dL (3.4-5.0); ALKALINE PHOSPHATASE 105 U/L (46-116); ASPARTATE AMINOTRANSFERASE 20 U/L (15-37); BILIRUBIN,TOTAL 0.3 mg/dL (0.1-1.0); TOTAL PROTEIN, SERUM 7.1 g/dL (6.4-8.2)
[2018-10-10 16:54] LABS: AMPHET/METH SCREEN,URINE POSITIVE (NEGATIVE); BARBITURATE SCREEN, URINE NEGATIVE (NEGATIVE); BENZODIAZEPINES SCREEN,URINE NEGATIVE (NEGATIVE); CANNABINOID SCREEN,URINE NEGATIVE (NEGATIVE); COCAINE SCREEN,URINE NEGATIVE (NEGATIVE); METHADONE SCREEN, URINE NEGATIVE (NEGATIVE); OPIATE SCREEN,URINE POSITIVE (NEGATIVE); PHENCYCLIDINE SCREEN,URINE NEGATIVE (NEGATIVE)
[2018-10-10] MEDS ORDERED: ZOLPIDEM TARTRATE 10 MG TABLET PO PRN (17:00)
[2018-10-10] MEDS ORDERED: HALOPERIDOL 5 MG TABLET PO PRN (17:00)
[2018-10-10] MEDS ORDERED: PNEUMOCOCCAL VACCINE POLYVALENT 0.5 ML VIAL [PPSV23] IM ONE (20:15)
[2018-10-10 20:38] VITALS: BP 117/71
[2018-10-11 00:46] VITALS: BP 139/83
[2018-10-11 16:19] VITALS: BP 114/63
[2018-10-12 08:11] VITALS: BP 128/60
[2018-10-12] MEDS: RisperiDONE 3 MG TABLET PO SCH ×3 (09:00→16:01)
[2018-10-12] MEDS ORDERED: POTASSIUM CHLORIDE 20 MEQ ER TABLET PO ONE (15:30)
[2018-10-12 16:41] VITALS: BP 117/77
[2018-10-13 00:09] VITALS: BP 102/68
[2018-10-13 07:37] LABS: HEMOGLOBIN A1C 4.7 % (4.5-6.2)
[2018-10-13 07:56] LABS: CHOL/HDL RATIO 3.7 (4.2-7.3); FREE T4 (FREE THYROXINE) 0.67 ng/dL (0.76-1.46); POTASSIUM 4.2 mmol/L (3.5-5.1); THYROID STIMULATING HORMONE 1.12 uIU/mL (0.36-3.74)
[2018-10-13] MEDS: RisperiDONE 3 MG TABLET PO SCH ×2 (08:41→16:38)
[2018-10-13 10:20] VITALS: BP 117/66
[2018-10-13] MEDS: LORazepam 2 MG TABLET PO PRN ×2 (10:39→15:59)
[2018-10-13 16:13] VITALS: BP 101/61
[2018-10-14 01:41] VITALS: BP 95/74
[2018-10-14 08:00] VITALS: BP 105/60
[2018-10-14] MEDS: RisperiDONE 3 MG TABLET PO SCH ×2 (08:23→16:13)
[2018-10-14] MEDS: LORazepam 2 MG TABLET PO PRN ×2 (09:03→16:11)
[2018-10-14 16:12] VITALS: BP 103/64
[2018-10-15] MEDS ORDERED: ONDANSETRON HCL 4 MG TABLET PO PRN (08:15)
[2018-10-15] MEDS ORDERED: DOCUSATE SODIUM 100 MG CAPSULE PO PRN (08:15)
[2018-10-15] MEDS ORDERED: BACITRACIN 28.4 GM OINTMENT TP PRN (08:15)
[2018-10-15] MEDS ORDERED: IBUPROFEN 600 MG TABLET PO PRN (08:15)
[2018-10-15] MEDS ORDERED: CloNIDine HCL 0.1 MG TABLET PO PRN (08:15)
[2018-10-15] MEDS ORDERED: BENZOCAINE/MENTHOL LOZENGE MM PRN (08:15)
[2018-10-15] MEDS ORDERED: LOPERAMIDE HCL 2 MG CAPSULE PO PRN (08:15)
[2018-10-15] MEDS ORDERED: PETROLATUM,WHITE 28 GM JELLY TP PRN (08:15)
[2018-10-15] MEDS ORDERED: MAGNESIUM HYDROXIDE SUSPENSION 30 ML UDCUP PO PRN (08:15)
[2018-10-15] MEDS ORDERED: OMEPRAZOLE 20 MG CAPSULE PO PRN (08:15)
[2018-10-15] MEDS ORDERED: ACETAMINOPHEN 325 MG TABLET PO PRN (08:15)
[2018-10-15] MEDS ORDERED: MAG HYDROX/AL HYDROX/SIMETH ES 30 ML SUSPENSION UDCUP PO PRN (08:15)
[2018-10-15] MEDS ORDERED: ALBUTEROL SULFATE HFA 90 MCG/PUFF 8 GM INHALER IH PRN (08:15)
[2018-10-15] MEDS: LORazepam 2 MG TABLET PO PRN (08:17)
[2018-10-15] MEDS: RisperiDONE 3 MG TABLET PO SCH (08:17)
[2018-10-15 08:41] VITALS: BP_SYST 124; BP_SYST 159; BP_DIAS 77; BP_DIAS 85
[2018-10-15] MEDS ORDERED: RISP3 PO (10:35)
== END 2018-10-15 11:00 | disposition home or self-care (01) | DRG 750 ==
LOC: EMS 12:48 → B2S 17:39
PROVIDERS: ADMIT Psychiatry & Neurology Psychiatry; ATTEND Psychiatry & Neurology Psychiatry
DX: F25.9 Schizoaffective disorder, unspecified (principal); R45.851 Suicidal ideations; Z59.0 Homelessness; E87.6 Hypokalemia; F15.10 Other stimulant abuse, uncomplicated; F17.200 Nicotine dependence, unspecified, uncomplicated; F41.9 Anxiety disorder, unspecified; G47.00 Insomnia, unspecified; F32.9 Major depressive disorder, single episode, unspecified
CPT/HCPCS: 83036; 84132; 84439; 84443; G0480